=== PATIENT | female | born 1995 | race African-American/Black ===

== ENCOUNTER 2020-10-10 08:18 | Emergency (ER) | payer MEDICAID ==
[~2020-10-10] VITALS: Ht 154.9 cm; Wt 88.0 kg
[2020-10-10 08:44] VITALS: BP 112/77
[2020-10-10] MEDS ORDERED: birth control (08:48)
[2020-10-10] MEDS ORDERED: CEFTRIAXONE SODIUM 500 MG/VIAL IM ONE (09:15)
[2020-10-10] MEDS ORDERED: DOXY100C2 MT (09:16)
[2020-10-10] MEDS ORDERED: LIDOCAINE HCL 1% 20ML VIAL (Pyxis) INJ INFIL ONE (09:45)
[2020-10-12 13:11] LABS: NEISSERIA GONORRHOEAE NAA Negative (Negative)
== END 2020-10-10 10:20 | disposition home or self-care (01) ==
LOC: ER 08:18
DX: Z20.2 Contact with and (suspected) exposure to infections with a predominantly sexual mode of transmission (principal)
CPT/HCPCS: 81025; 87491; 87591; 96372; 99283; J0696; J3490

== ENCOUNTER 2021-01-18 11:50 | Emergency (ER) | payer MEDICAID, OTHER ==
[~2021-01-18] VITALS: Ht 154.9 cm; Wt 89.0 kg
[~2021-01-18 11:50] MED LIST: DOXY100C5 MT; birth control
[2021-01-18 12:44] LABS: CLARITY URINE CLEAR (CLEAR); COLOR URINE YELLOW (YELLOW); KETONES URINE NEGATIVE (NEGATIVE); LEUKOCYTE ESTERASE URINE 3+ (NEGATIVE); NITRITE URINE NEGATIVE (NEGATIVE); OCCULT BLOOD URINE NEGATIVE (NEGATIVE); PROTEIN URINE NEGATIVE (NEGATIVE); SPECIFIC GRAVITY URINE 1.025 (1.005-1.030); UROBILINOGEN URINE 0.2 E.U./dL (0.2-1.0)
[2021-01-18] MEDS ORDERED: METR500T MT (13:16)
[2021-01-18] MEDS ORDERED: CHLO473M2 MT (13:30)
[2021-01-18 13:38] VITALS: BP 118/71
== END 2021-01-18 13:39 | disposition home or self-care (01) ==
LOC: ER 11:50
DX: N76.0 Acute vaginitis (principal); Z88.0 Allergy status to penicillin; Z98.890 Other specified postprocedural states
CPT/HCPCS: 81003; 81025; 87210; 99283